=== PATIENT | male | born 1960 | race Caucasian/White ===

== ENCOUNTER → 2016-06-19 | Outpatient (CLI) | payer BC ==
[~2016-06-19] MED LIST: ALBUAER2 INH; AMOX500C3 PO; ASPI81TA28 PO; CITA20TA9 PO; CLOT1CRE47 XXX; IBUP-1451 PO; NEOM1SOL20 OT; OMEP40CA PO
--- NOTE | 2016-06-19 09:42 | DIAGNOSTIC IMAGING REPORT ---
CHEST CT WITHOUT CONTRAST CT DOSE: 889.71 mGy.cm HISTORY: Pulmonary nodules . TECHNIQUE: Multiaxial CT images of the chest were performed without contrast. COMPARISON: 10/09/2007. 2013. FINDINGS: Findings of prior median sternotomy. Pulmonary micronodular area is stable. There is no evidence for new or interval pulmonary nodule. Plaque atelectasis right base. Improved atelectatic versus parenchymal scar change anterior middle lobe. No focal infiltrative changes at the current time. Several small mediastinal and/or hilar nodes unaltered from the prior study. No significant or bulky adenopathy. IMPRESSION: 1. Stable pulmonary micronodule change. 2. minimal right basilar atelectasis. 3. Improved atelectatic change right middle lobe Electronically signed by: Gideon Caputo M.D. 06/19/2016 9:40 AM Dictated Date/Time: 06/19/2016 9:37 AM
== END | disposition home or self-care (01) ==
LOC: C.CTS 09:25
PROVIDERS: ATTEND Nurse Practitioner
DX: R91.8 Other nonspecific abnormal finding of lung field (principal)

== ENCOUNTER → 2017-05-13 | Outpatient (CLI) | payer BC ==
--- NOTE | 2017-05-13 09:16 | DIAGNOSTIC IMAGING REPORT ---
(CHEST) THORAX WITHOUT CT DOSE: 642.92 mGycm CLINICAL HISTORY: 56 years-old Male with MULTIPLE PULMONARY NODULES. Follow-up study in a patient with pulmonary nodules. TECHNIQUE: Multiaxial CT images of the chest were performed without contrast. A dose lowering technique was utilized adhering to the principles of ALARA. COMPARISON: Chest CT 06/19/2016 and 10/09/2007 FINDINGS: Thyroid appears homogeneous. No pathologically enlarged lymph nodes are identified. Prior median sternotomy. Coronary arterial disease. Heart is normal in size without pericardial effusion. Mild atherosclerotic plaquing of the aorta without aneurysm. There is no pneumothorax or pleural effusion. Linear subsegmental opacities of the lung bases, notably within the basal right lower lobe suggest areas of atelectasis/scarring. There is a 4 mm perifissural lymph node adjacent to the left lower lobe as seen on image 143 series 4 which is unchanged. Additional 4 mm perifissural lymph node is seen on the left adjacent to the superior segment left lower lobe, image 83 series 4 which is also unchanged dating back to 10/09/2007. Minimal groundglass opacities of the inferior segment lingula also suggests atelectasis. No new or enlarging pulmonary nodules identified. Areas of pleural-based nodularity measuring up to 4 mm noted within the right upper lobe as seen on image 118 series 4, also stable from 10/09/2007. The central airways are patent. 6 mm low attenuating lesion of the left hepatic lobe is unchanged suggesting hepatic cyst. No acute amount the of the imaged upper abdomen. Soft tissues are unremarkable with mild bilateral gynecomastia. The bones appear to be intact. Sclerotic focus at T11 suggests bone island. This is unchanged. IMPRESSION: 1. No acute intrathoracic abnormality identified. 2. Unchanged scattered solid noncalcified pulmonary nodules are again seen, several of which are compatible with benign perifissural lymph nodes. These findings are unchanged dating back to 10/09/2007 without new or enlarging pulmonary nodules identified. 3. No pathologic adenopathy or focal airspace consolidation identified. 4. Prior median sternotomy with coronary arterial disease. Electronically signed by: Fareed Chan M.D. 05/13/2017 9:14 AM Dictated Date/Time: 05/13/2017 9:06 AM
== END | disposition home or self-care (01) ==
LOC: C.CTS 08:40
PROVIDERS: ATTEND Physician Assistant
DX: R91.8 Other nonspecific abnormal finding of lung field (principal)

== ENCOUNTER → 2017-07-09 | Outpatient (CLI) | payer BC ==
--- NOTE | 2017-07-09 20:16 | ECHOCARDIOGRAM REPORT ---
*NOTICE TO RECEIVING [employer] This information is strictly Confidential and protected under [place] law. [place] law prohibits you from making any further disclosure of this information unless further disclosure is expressly permitted by the written consent of the person to whom it pertains or is authorized by law. A general authorization for the release of medical or other information is not sufficient for this purpose. Hospital accepts no responsibility if the information is made available to any other person, INCLUDING THE PATIENT. Interpretation Summary * Name: SUZANNA KRISHNA Study Date: 07/09/2017 12:54 PM BP: 144/67 mmHg * Patient Location: [facility] HR: 87 * : 1960 (M/d/yyyy) Gender: Male Height: 70 in * Age: 56 yrs Ethnicity: CA Weight: 235 lb * Ordering Physician: SOURAV OVALLE PA-C * Performed By: Elba Josue RCS * * Reason For Study: S/P AORTIC REPAIR * BSA: 2.2 m2 * -- Conclusions -- * 1. Normal left ventricular size and systolic function. EF 60-65%. No regional wall motion abnormalities. Mild concentric left ventricular hypertrophy. Type 1 diastolic dysfunction. * 2. Aortic valve leaflets were not well visualized. No aortic stenosis. Trace aortic regurgitation. * 3. Technically difficult study. Procedure Details * A complete two-dimensional transthoracic echocardiogram was performed (2D, M-mode, Doppler and color flow Doppler). Left Ventricle * The left ventricle is normal in size. * There is mild concentric left ventricular hypertrophy. * Left ventricular systolic function is normal. * No regional wall motion abnormalities noted. Right Ventricle * The right ventricle is normal in size and function. * The right ventricular systolic function is normal as assessed by tricuspid annular plane systolic excursion (TAPSE) (normal >1.5 cm). Atria * The left atrial size is normal. * Right atrial size is normal. * There is no evidence of atrial septal defect, but resolution does not allow assessment for a patent foramen ovale. Mitral Valve * The mitral valve is grossly normal. * There is no mitral valve stenosis. * Significant mitral regurgitation is absent. Tricuspid Valve * The tricuspid valve is not well visualized, but is grossly normal. * There is no tricuspid stenosis. * Significant tricuspid regurgitation is absent. Aortic Valve * The aortic valve is not well visualized. * No hemodynamically significant valvular aortic stenosis. * Trace aortic regurgitation. Pulmonic Valve * The pulmonary valve is inadequately visualized, but the Doppler data is adequate for interpretation. * There is no pulmonic valvular stenosis. * There is no significant pulmonary regurgitation. Great Vessels * The aortic root is normal size. Pericardium/Pleural * There is no pericardial effusion. Great Vessels * Normal inferior vena cava size and collapsability with sniff indicates a normal right atrial pressure of 3 mmHg MMode 2D Measurements and Calculations IVSd 1.3 cm LVIDd 5.2 cm LVPWd 1.2 cm IVS/LVPW 1.1 EDV(Teich) 128.8 ml EDV(cubed) 139.6 ml LV mass(C)d 262.5 grams LV mass(C)dI 117.4 grams/m\S\2 Ao root diam 4.0 cm Ao root area 12.7 cm\S\2 LA dimension 3.2 cm LA/Ao 0.79 LVOT diam 2.2 cm LVOT area 3.8 cm\S\2 LVAd ap4 39.1 cm\S\2 LVLd ap4 8.4 cm EDV(MOD-sp4) 144.3 ml EDV(sp4-el) 154.0 ml LVAs ap4 22.7 cm\S\2 LVLs ap4 7.1 cm ESV(MOD-sp4) 64.3 ml ESV(sp4-el) 61.5 ml EF(MOD-sp4) 55.5 % EF(sp4-el) 60.0 % LVAd ap2 34.0 cm\S\2 LVLd ap2 8.4 cm EDV(MOD-sp2) 118.2 ml EDV(sp2-el) 116.5 ml LVAs ap2 16.9 cm\S\2 LVLs ap2 6.8 cm ESV(MOD-sp2) 39.8 ml ESV(sp2-el) 35.7 ml EF(MOD-sp2) 66.3 % EF(sp2-el) 69.3 % LVLd %diff -0.50 % EDV(MOD-bp) 129.8 ml LVLs %diff -4.20 % ESV(MOD-bp) 51.5 ml EF(MOD-bp) 60.3 % SV(MOD-sp4) 80.1 ml SI(MOD-sp4) 35.8 ml/m\S\2 SV(MOD-sp2) 78.4 ml SI(MOD-sp2) 35.1 ml/m\S\2 SV(MOD-bp) 78.3 ml SI(MOD-bp) 35.0 ml/m\S\2 SV(sp4-el) 92.5 ml SI(sp4-el) 41.4 ml/m\S\2 SV(sp2-el) 80.8 ml SI(sp2-el) 36.1 ml/m\S\2 Doppler Measurements and Calculations MV E max harman 54.2 cm/sec MV A max harman 62.8 cm/sec MV E/A 0.86 MV P1/2t max harman 73.3 cm/sec MV P1/2t 77.7 msec MVA(P1/2t) 2.8 cm\S\2 MV dec slope 276.3 cm/sec\S\2 MV dec time 0.22 sec Ao V2 max 133.6 cm/sec Ao max PG 7.2 mmHg Ao max PG (full) 2.2 mmHg VINAY(V,A) 3.2 cm\S\2 VINAY(V,D) 3.2 cm\S\2 LV V1 max PG 5.0 mmHg LV V1 max 111.3 cm/sec PA V2 max 112.2 cm/sec PA max PG 5.0 mmHg
== END | disposition home or self-care (01) ==
LOC: C.CPL 12:48
PROVIDERS: ATTEND Physician Assistant Medical
DX: Q23.1 Congenital insufficiency of aortic valve (principal)